=== PATIENT | female | born 1965 | race Caucasian/White ===

== ENCOUNTER 2018-11-04 06:08 | Day surgery (SDC) | payer BC ==
[2018-11-04] MEDS ORDERED: LIDOCAINE 4% SOLUTION 50 ML BTL (08:01)
[2018-11-04] MEDS ORDERED: FENTAnyl 50 MCG/ML VIAL (09:36)
[2018-11-04] MEDS ORDERED: MIDAZOLAM 1 MG/ML 2 ML INJ ×2 (09:37)
== END 2018-11-04 10:11 | disposition home or self-care (01) ==
LOC: GIL 06:08
DX: Z12.11 Encounter for screening for malignant neoplasm of colon (principal); K29.00 Acute gastritis without bleeding; K20.8 Other esophagitis; K64.8 Other hemorrhoids
CPT/HCPCS: 43239; 88305; 88312

== ENCOUNTER 2019-04-17 19:41 | Emergency (ER) | payer BC ==
[2019-04-17 20:13] LABS: URINE BLOOD (Dip) POC Negative (NEGATIVE); URINE GLUCOSE (Dip) POC Negative (NEGATIVE); URINE KETONES (Dip) POC Negative (NEGATIVE); URINE LEUKOCYTE EST (Dip) POC 1+ (NEGATIVE); URINE NITRITE (Dip) POC Negative (NEGATIVE); URINE TOTAL PROTEIN POC Negative (NEGATIVE)
[2019-04-17] MEDS: KETOROLAC 30 MG INJ IV (20:22)
[2019-04-17] MEDS: ONDANSETRON 4 MG INJ IV (20:22)
== END 2019-04-17 22:20 | disposition home or self-care (01) ==
LOC: E/R 19:41
DX: R07.89 Other chest pain (principal)
CPT/HCPCS: 71045; 81003; 93005; 96374; 96375; 99284-25